=== PATIENT | female | born 1990 | race African-American/Black ===

== ENCOUNTER 2021-07-15 15:41 | Emergency (ER) | payer MEDICAID ==
[~2021-07-15] VITALS: Ht 160 cm; Wt 82.0 kg
[2021-07-15 15:50] VITALS: BP 125/90
[2021-07-15 16:35] LABS: BASOPHILS % 0.4 % (0.0-2.0); EOSINOPHILS % 0.5 % (0.0-5.0); HEMATOCRIT. 41.1 % (36.0-48.0); HEMOGLOBIN. 13.8 g/dL (12.0-16.0); LYMPHOCYTES % 21.1 % (20.0-50.0); MEAN CORPUSCULAR HEMOGLOBIN 32.9 pg (28.0-32.0); MEAN CORPUSCULAR VOLUME 98.2 fL (81.0-99.0); MEAN PLATELET VOLUME 7.5 fl (7.4-10.4); MONOCYTES % 7.2 % (2.0-8.0); NEUTROPHILS % 70.8 % (40.0-76.0); PLATELET 280 x1000/uL (130-400); RED BLOOD CELL COUNT 4.19 mill/uL (4.2-5.4); RED CELL DISTRIBUTION WIDTH 12.4 % (11.6-14.6)
[2021-07-15 16:45] LABS: CHLORIDE 108 mEq/L (98-107)
[2021-07-15 16:54] LABS: HCG SCREEN NEGATIVE
[2021-07-15 22:39] LABS: CLARITY URINE CLEAR (CLEAR); COLOR URINE YELLOW (YELLOW); KETONES URINE 1+ (NEGATIVE); LEUKOCYTE ESTERASE URINE TRACE (NEGATIVE); NITRITE URINE NEGATIVE (NEGATIVE); OCCULT BLOOD URINE NEGATIVE (NEGATIVE); PROTEIN URINE TRACE (NEGATIVE); SPECIFIC GRAVITY URINE 1.028 (1.005-1.030)
[2021-07-18 17:06] LABS: NEISSERIA GONORRHOEAE NAA Negative (Negative)
== END 2021-07-15 22:48 | disposition left against medical advice (07) ==
LOC: ER 15:41
DX: R10.31 Right lower quadrant pain (principal); N89.8 Other specified noninflammatory disorders of vagina; M79.675 Pain in left toe(s); Z53.21 Procedure and treatment not carried out due to patient leaving prior to being seen by health care provider
CPT/HCPCS: 36415; 73630; 80053; 81003; 84703; 85025; 87491; 87591

== ENCOUNTER 2021-10-22 16:54 | Emergency (ER) | payer MEDICAID ==
[~2021-10-22] VITALS: Ht 160 cm; Wt 78.0 kg
[2021-10-22] MEDS ORDERED: DOXYCYCLINE HYCLATE 100MG CAPSULE PO ONE (17:30)
[2021-10-22] MEDS ORDERED: CEFTRIAXONE SODIUM 500 MG/VIAL IM ONE (17:30)
[2021-10-22 17:34] LABS: CLARITY URINE CLEAR (CLEAR); COLOR URINE YELLOW (YELLOW); KETONES URINE TRACE (NEGATIVE); LEUKOCYTE ESTERASE URINE NEGATIVE (NEGATIVE); NITRITE URINE NEGATIVE (NEGATIVE); OCCULT BLOOD URINE NEGATIVE (NEGATIVE); PH URINE 5.5 (4.5-8.0); PROTEIN URINE NEGATIVE (NEGATIVE); SPECIFIC GRAVITY URINE 1.027 (1.005-1.030)
[2021-10-22] MEDS ORDERED: DOXY100C5 MT (18:28)
[2021-10-22] MEDS ORDERED: METR500T MT (18:28)
[2021-10-22 19:08] VITALS: BP 106/85
[2021-10-25 19:10] LABS: NEISSERIA GONORRHOEAE NAA Negative (Negative)
== END 2021-10-22 19:09 | disposition home or self-care (01) ==
LOC: ER 16:54
DX: S93.409A Sprain of unspecified ligament of unspecified ankle, initial encounter (principal); N76.0 Acute vaginitis; J45.909 Unspecified asthma, uncomplicated; W50.2XXA Accidental twist by another person, initial encounter; Y93.89 Activity, other specified; Y92.89 Other specified places as the place of occurrence of the external cause; Y99.8 Other external cause status
CPT/HCPCS: 73600; 73620; 81003; 81025; 87210; 87491; 87591; 96372; 99284; J0696

== ENCOUNTER 2021-12-18 21:59 | Emergency (ER) | payer MEDICAID, OTHER ==
[~2021-12-18] VITALS: Ht 160 cm; Wt 78.8 kg
[~2021-12-18 21:59] MED LIST: DOXY100C5 MT; METR500T MT
[2021-12-18 23:38] LABS: CHLORIDE 107 mEq/L (98-107)
[2021-12-18 23:41] LABS: HCG SCREEN NEGATIVE
[2021-12-18 23:43] LABS: BASOPHILS % 0.5 % (0.0-2.0); HEMATOCRIT. 39.2 % (36.0-48.0); HEMOGLOBIN. 13.4 g/dL (12.0-16.0); LYMPHOCYTES % 33.2 % (20.0-50.0); MEAN CORPUSCULAR HEMOGLOBIN 33.7 pg (28.0-32.0); MEAN CORPUSCULAR VOLUME 98.8 fL (81.0-99.0); MONOCYTES % 8.5 % (2.0-8.0); NEUTROPHILS % 56.8 % (40.0-76.0); PLATELET 235 x1000/uL (130-400); RED BLOOD CELL COUNT 3.97 mill/uL (4.2-5.4); RED CELL DISTRIBUTION WIDTH 12.2 % (11.6-14.6)
[2021-12-19 00:13] LABS: CLARITY URINE CLEAR (CLEAR); COLOR URINE YELLOW (YELLOW); KETONES URINE TRACE (NEGATIVE); LEUKOCYTE ESTERASE URINE NEGATIVE (NEGATIVE); NITRITE URINE NEGATIVE (NEGATIVE); OCCULT BLOOD URINE 3+ (NEGATIVE); PH URINE 5.5 (4.5-8.0); PROTEIN URINE TRACE (NEGATIVE); SPECIFIC GRAVITY URINE 1.032 (1.005-1.030)
[2021-12-19] MEDS ORDERED: IBUPROFEN 600MG TABLET PO ONE (00:15)
[2021-12-19] MEDS ORDERED: IBUP-2029 MT (02:38)
[2021-12-19] MEDS ORDERED: LIDO1ADH5 TP (02:38)
[2021-12-19] MEDS ORDERED: ACETAMINOPHEN 325MG TABLET PO ONE (02:45)
[2021-12-19 03:48] VITALS: BP 116/71
== END 2021-12-19 04:12 | disposition home or self-care (01) ==
LOC: ER 21:59
DX: N93.9 Abnormal uterine and vaginal bleeding, unspecified (principal); M54.50 Low back pain, unspecified; J45.909 Unspecified asthma, uncomplicated
CPT/HCPCS: 36415; 76830; 76856; 80053; 81003; 81025; 84703; 85025; 99284

== ENCOUNTER 2023-12-01 07:36 | Emergency (ER) | payer MEDICAID, OTHER ==
[~2023-12-01] VITALS: Ht 160 cm; Wt 84.0 kg
[~2023-12-01 07:36] MED LIST changes: +IBUP-2029 MT; +LIDO1ADH5 TP
[2023-12-01 07:43] VITALS: BP 136/94; PULSE 95; RESP 20; TEMP 98; O2SAT 100
[2023-12-01] MEDS: METHYLPREDNISOLONE SOD SUCC 125MG/2ML (ACT-O-VIAL) IV SCH (08:30)
[2023-12-01] MEDS: DIPHENHYDRAMINE 50MG/ML VIAL IV ONE (08:38)
[2023-12-01] MEDS: FAMOTIDINE 20MG/2ML VIAL IV ONE (08:39)
[2023-12-01] MEDS: METHYLPREDNISOLONE SOD SUCC 40MG VIAL IV ONE (08:40)
[2023-12-01] MEDS ORDERED: FAMO40TA70 MT (12:38)
[2023-12-01] MEDS ORDERED: P20 MT (12:38)
[2023-12-01] MEDS ORDERED: B50 MT (12:38)
== END 2023-12-01 13:15 | disposition home or self-care (01) ==
LOC: ER 07:36
DX: T78.40XA Allergy, unspecified, initial encounter (principal); J45.909 Unspecified asthma, uncomplicated; Z98.890 Other specified postprocedural states; X58.XXXA Exposure to other specified factors, initial encounter
CPT/HCPCS: 81025; 96374; 96375; 99284; J1200; J3490; J2930; Z7610; J2920